=== PATIENT | female | born 1970 | race African-American/Black ===

== ENCOUNTER 2017-07-04 12:08 | Emergency (ER) | payer BC ==
[~2017-07-04] VITALS: Ht 160 cm; Wt 80.0 kg
[2017-07-04] MEDS ORDERED: FLUT1DIS2 IH (12:25)
[2017-07-04] MEDS ORDERED: ALBU18HF2 IH (12:25)
[2017-07-04 17:00] LABS: BASOPHILS % 0.9 % (0.0-2.0); EOSINOPHILS % 1.5 % (0.0-5.0); HEMATOCRIT. 36.1 % (36.0-48.0); HEMOGLOBIN. 12.6 g/dL (12.0-16.0); LYMPHOCYTES % 33.1 % (20.0-50.0); MEAN CORPUSCULAR HEMOGLOBIN 29.7 pg (28.0-32.0); MEAN CORPUSCULAR VOLUME 84.9 fL (81.0-99.0); MEAN PLATELET VOLUME 7.5 fl (7.4-10.4); MONOCYTES % 6.6 % (2.0-8.0); NEUTROPHILS % 57.9 % (40.0-76.0); PLATELET 305 x1000/uL (130-400); RED BLOOD CELL COUNT 4.25 mill/uL (4.2-5.4); RED CELL DISTRIBUTION WIDTH 14.2 % (11.6-14.6)
[2017-07-04 17:05] LABS: CHLORIDE 105 mEq/L (98-107)
[2017-07-04 17:06] LABS: PROTHROMBIN TIME 10.9 sec (9.4-11.6)
[2017-07-04 17:16] LABS: TROPONIN I < 0.02 ng/mL (0.00-0.04)
[2017-07-04 17:52] LABS: CLARITY URINE CLEAR (CLEAR); COLOR URINE YELLOW (YELLOW); KETONES URINE 1+ (NEGATIVE); LEUKOCYTE ESTERASE URINE NEGATIVE (NEGATIVE); NITRITE URINE NEGATIVE (NEGATIVE); OCCULT BLOOD URINE NEGATIVE (NEGATIVE); PROTEIN URINE NEGATIVE (NEGATIVE); UROBILINOGEN URINE 0.2 E.U./dL (0.2-1.0)
[2017-07-04 19:30] VITALS: BP 134/63
[2017-07-04] MEDS ORDERED: IPRATROPIUM/ALBUTEROL 0.5-3(2.5)MG/3ML NEB HHN ONE (19:30)
== END 2017-07-04 20:30 | disposition home or self-care (01) ==
LOC: ER 13:15
DX: R07.9 Chest pain, unspecified (principal); J06.9 Acute upper respiratory infection, unspecified; J45.909 Unspecified asthma, uncomplicated; Z90.710 Acquired absence of both cervix and uterus
CPT/HCPCS: 36415; 71045; 80053; 81003; 81025; 83880; 84484; 85025; 85610; 93005; 94640; 99285; J7620